=== PATIENT | male | born 1935 | race Two or more races ===

== ENCOUNTER 2020-09-01 09:10 | Emergency (ER) | payer MEDICARE, OTHER ==
[~2020-09-01] VITALS: Ht 167.6 cm; Wt 75.8 kg
--- NOTE | 2020-09-01 09:45 | NUR ---
RADIOLOGY AT BEDSIDE
--- NOTE | 2020-09-01 09:50 | NUR ---
LAB AT BEDSIDE
--- NOTE | 2020-09-01 10:06 | NUR ---
POC CLARIFIED WITH ERP PATIENT POOR HISTORIAN AND ASSESSMENT WITH NO SPECIFIC SOURCE OF PAIN, ETC. TO REQUEST RECORD FROM [facility]
[2020-09-01 10:07] LABS: BASOPHILS % (AUTO) 1 % (0-1); EOSINOPHILS % (AUTO) 6 % (1-7); LYMPHOCYTES % (AUTO) 27 % (22-44); MEAN CORPUSCULAR HEMOGLOBIN 31.4 pg (27.5-34.5); MEAN CORPUSCULAR HGB CONC 33.3 g/dL (33.2-36.2); MEAN PLATELET VOLUME 7.7 fL (7.4-10.4); MONOCYTES % (AUTO) 10 % (2-9); NEUTROPHILS % (AUTO) 57 % (42-75); PLATELET COUNT 262 x10^3/uL (130-400); RED CELL DISTRIBUTION WIDTH 14.4 % (9.4-14.8)
[2020-09-01 10:11] LABS: MD NO
[2020-09-01 10:16] LABS: ALANINE AMINOTRANSFERASE 36 U/L (12-78); ALBUMIN 3.6 g/dL (3.4-5.0); ANION GAP 7 mmol/L (5-15); CALCIUM 9.1 mg/dL (8.5-10.1); CHLORIDE 107 mmol/L (98-107); CREATININE 1.14 mg/dL (0.7-1.3)
[2020-09-01 10:19] LABS: ALKALINE PHOSPHATASE 73 U/L (45-117); BILIRUBIN,TOTAL 0.9 mg/dL (0.2-1.0); TOTAL PROTEIN 7.1 g/dL (6.4-8.2)
--- NOTE | 2020-09-01 11:11 | NUR ---
WITH REASSESSMENT PATIENT WITHOUT SXS (NO PAIN/NAUSEA), VSS WELL TESTING RESULTS REVIEWED PROVIDER UPDATED-AWAITING RENOWN RECORD OF REPORTED SURGERY
[2020-09-01 13:28] VITALS: BP 115/61
--- NOTE | 2020-09-01 13:29 | NUR ---
REPORT FROM PER[facility]A DISCHARGED HOME.
== END 2020-09-01 13:30 | disposition home or self-care (01) ==
LOC: ED 10:17
DX: R10.9 Unspecified abdominal pain (principal)
CPT/HCPCS: 36415; 74022; 80053; 85025; 99284